=== PATIENT | female | born 1975 | race Caucasian/White ===

== ENCOUNTER 2018-09-30 15:46 | Inpatient (IN) | payer MEDICARE, MEDICAID ==
[~2018-09-30] VITALS: Ht 165.1 cm; Wt 104.0 kg
[~2018-09-30 15:46] MED LIST: ESOM20CA31 PO; LITH300C3 PO; LITH600 PO; METF-960 PO; ZIPR40CA2 PO
[2018-09-30 16:12] LABS: BASOPHILS % (AUTO) 0.9 % (0.0-2.0); EOSINOPHILS % (AUTO) 10.7 % (1.0-6.0); HEMATOCRIT 39.6 % (36-46); HEMOGLOBIN 13.3 g/dL (12.0-16.0); LYMPHOCYTES # (AUTO) 3.4 K/uL (1.0-4.8); LYMPHOCYTES % (AUTO) 24.3 % (22.0-44.0); MEAN CORPUSCULAR HEMOGLOBIN 29.7 pg (26.0-34.0); MEAN CORPUSCULAR HGB CONC 33.7 G/dL (31.0-37.0); MEAN CORPUSCULAR VOLUME 88 fL (80-100); MONOCYTES # (AUTO) 0.9 K/uL (0.1-1.0); MONOCYTES % (AUTO) 6.5 % (2.0-9.0); NEUTROPHILS % (AUTO) 57.6 % (40.0-70.0); PLATELET COUNT (AUTO) 538 K/uL (150-450); RED BLOOD CELL COUNT(AUTO) 4.48 MIL/uL (4.00-5.20)
[2018-09-30 16:21] LABS: ANION GAP 9 mmol/L (8-16); CALCIUM, TOTAL 9.5 mg/dL (8.8-10.5); CARBON DIOXIDE 28 mmol/L (22-29); CHLORIDE 98 mmol/L (98-107); CREATININE 0.92 mg/dL (0.60-1.30); GLOMERULAR FILTR. RATE CALC > 60 mL/min (>60); GLUCOSE,RANDOM 298 mg/dL (70-110); POTASSIUM 4.4 mmol/L (3.5-5.1); SODIUM SERUM 135 mmol/L (136-145); UREA NITROGEN, BLOOD 20 mg/dL (7-18)
[2018-09-30 16:27] LABS: ALANINE AMINOTRANSFERASE 91 U/L (12-78); ALBUMIN 3.9 g/dL (3.4-5.0); ALKALINE PHOSPHATASE 141 U/L (46-116); ASPARTATE AMINOTRANSFERASE 56 U/L (15-37); BILIRUBIN,TOTAL 1.5 mg/dL (0.1-1.0); TOTAL PROTEIN, SERUM 8.5 g/dL (6.4-8.2)
[2018-09-30 16:41] LABS: LITHIUM < 0.20 mmol/L (0.60-1.20)
[2018-09-30] MEDS ORDERED: LORazepam 1 MG TABLET PO ONE (17:15)
[2018-09-30] MEDS ORDERED: ZOLPIDEM TARTRATE 10 MG TABLET PO PRN (18:45)
[2018-09-30 18:51] LABS: AMPHET/METH SCREEN,URINE POSITIVE (NEGATIVE); BARBITURATE SCREEN, URINE NEGATIVE (NEGATIVE); BENZODIAZEPINES SCREEN,URINE NEGATIVE (NEGATIVE); CANNABINOID SCREEN,URINE POSITIVE (NEGATIVE); COCAINE SCREEN,URINE NEGATIVE (NEGATIVE); METHADONE SCREEN, URINE NEGATIVE (NEGATIVE); OPIATE SCREEN,URINE NEGATIVE (NEGATIVE)
[2018-09-30 18:52] LABS: PHENCYCLIDINE SCREEN,URINE NEGATIVE (NEGATIVE)
[2018-09-30 21:03] VITALS: BP 141/92
[2018-09-30] MEDS ORDERED: CloNIDine HCL 0.1 MG TABLET PO PRN (21:15)
[2018-09-30] MEDS ORDERED: ACETAMINOPHEN 325 MG TABLET PO PRN (21:15)
[2018-09-30] MEDS ORDERED: IBUPROFEN 400 MG TABLET PO PRN (21:15)
[2018-09-30] MEDS ORDERED: PETROLATUM,WHITE 28 GM JELLY TP PRN (21:15)
[2018-09-30] MEDS ORDERED: ONDANSETRON HCL 4 MG TABLET PO PRN (21:15)
[2018-09-30] MEDS ORDERED: NICOTINE 14 MG/24 HOUR PATCH TD PRN (21:15)
[2018-09-30] MEDS ORDERED: DOCUSATE SODIUM 100 MG CAPSULE PO PRN (21:15)
[2018-09-30] MEDS ORDERED: LOPERAMIDE HCL 2 MG CAPSULE PO PRN (21:15)
[2018-09-30] MEDS ORDERED: GuaiFENesin/D-METHORPHAN [SUGAR-FREE] 200-20MG/10 ML SYRUP UDCUP PO PRN (21:15)
[2018-09-30] MEDS ORDERED: ALBUTEROL SULFATE HFA 90 MCG/PUFF 8 GM INHALER IH PRN (21:15)
[2018-09-30] MEDS ORDERED: MAGNESIUM HYDROXIDE SUSPENSION 30 ML UDCUP PO PRN (21:15)
[2018-09-30] MEDS ORDERED: MAG HYDROX/AL HYDROX/SIMETH ES 30 ML SUSPENSION UDCUP PO PRN (21:15)
[2018-09-30] MEDS ORDERED: DEXTROSE 50%-WATER 25 GM/50 ML SYRINGE IVP PRN (21:45)
[2018-09-30] MEDS: LORazepam 2 MG TABLET PO PRN (22:52)
[2018-09-30] MEDS: HALOPERIDOL 5 MG TABLET PO PRN (22:52)
[2018-10-01] MEDS ORDERED: PNEUMOCOCCAL VACCINE POLYVALENT 0.5 ML VIAL [PPSV23] IM ONE (02:30)
[2018-10-01 06:19] LABS: BASOPHILS % (AUTO) 0.9 % (0.0-2.0); HEMOGLOBIN 12.4 g/dL (12.0-16.0); LYMPHOCYTES # (AUTO) 3.6 K/uL (1.0-4.8); LYMPHOCYTES % (AUTO) 32.4 % (22.0-44.0); MEAN CORPUSCULAR HEMOGLOBIN 29.7 pg (26.0-34.0); MEAN CORPUSCULAR HGB CONC 33.4 G/dL (31.0-37.0); MEAN CORPUSCULAR VOLUME 89 fL (80-100); MONOCYTES # (AUTO) 0.6 K/uL (0.1-1.0); MONOCYTES % (AUTO) 5.6 % (2.0-9.0); NEUTROPHILS # (AUTO) 4.5 K/uL (1.8-7.7); NEUTROPHILS % (AUTO) 41.1 % (40.0-70.0); PLATELET COUNT (AUTO) 457 K/uL (150-450); RED BLOOD CELL COUNT(AUTO) 4.16 MIL/uL (4.00-5.20); RED CELL DISTRIBUTION WIDTH 12.9 % (11.5-14.5)
[2018-10-01 06:55] LABS: GLUCOMETER DEV NAME(LOC) 3E.I; GLUCOSE,POINT OF CARE 302 MG/DL (70-110)
[2018-10-01 06:56] LABS: HEMOGLOBIN A1C 8.8 % (4.5-6.2)
[2018-10-01] MEDS: INSULIN LISPRO 100 UNITS/ML SQ PRN ×2 (07:22→17:53)
[2018-10-01 07:45] LABS: ALANINE AMINOTRANSFERASE 77 U/L (12-78); ALBUMIN 3.3 g/dL (3.4-5.0); ALKALINE PHOSPHATASE 127 U/L (46-116); ANION GAP 8 mmol/L (8-16); ASPARTATE AMINOTRANSFERASE 53 U/L (15-37); BILIRUBIN,TOTAL 1.2 mg/dL (0.1-1.0); CARBON DIOXIDE 27 mmol/L (22-29); CHLORIDE 101 mmol/L (98-107); CHOL/HDL RATIO 5.6 (3.9-5.7); CHOLESTEROL 169 mg/dL (131-200); CREATININE 0.77 mg/dL (0.60-1.30); GLOMERULAR FILTR. RATE CALC > 60 mL/min (>60); GLUCOSE,RANDOM 267 mg/dL (70-110); HDL CHOLESTEROL 30 mg/dL (40-60); LDL CHOL (CALC.) 95 mg/dL (0-130); POTASSIUM 4.3 mmol/L (3.5-5.1); SODIUM SERUM 136 mmol/L (136-145); THYROID STIMULATING HORMONE 2.93 uIU/mL (0.36-3.74); TOTAL PROTEIN, SERUM 6.7 g/dL (6.4-8.2); TRIGLYCERIDES 222 mg/dL (15-150); UREA NITROGEN, BLOOD 17 mg/dL (7-18)
[2018-10-01 08:50] VITALS: BP 134/70
[2018-10-01] MEDS: HALOPERIDOL 5 MG TABLET PO PRN (09:41)
[2018-10-01] MEDS: LORazepam 2 MG TABLET PO PRN ×2 (09:41→17:00)
[2018-10-01 16:45] VITALS: BP 126/90
[2018-10-01] MEDS: LITHIUM CARBONATE 300 MG TABLET PO SCH (17:01)
[2018-10-01 17:04] LABS: GLUCOMETER DEV NAME(LOC) 3E.I; GLUCOSE,POINT OF CARE 233 MG/DL (70-110)
[2018-10-01] MEDS ORDERED: LURASIDONE HCL 40 MG TABLET PO SCH (17:30)
[2018-10-01] MEDS ORDERED: MetFORMIN HCL 500 MG TABLET PO SCH (17:30)
[2018-10-02 06:15] LABS: GLUCOMETER DEV NAME(LOC) 3E.I; GLUCOSE,POINT OF CARE 263 MG/DL (70-110)
[2018-10-02] MEDS: INSULIN LISPRO 100 UNITS/ML SQ PRN (07:10)
[2018-10-02 08:00] VITALS: BP 127/83
[2018-10-02] MEDS ORDERED: PredniSONE 20 MG TABLET ONE (08:26)
[2018-10-02] MEDS: LITHIUM CARBONATE 300 MG TABLET PO SCH (08:28)
[2018-10-02] MEDS ORDERED: PredniSONE 20 MG TABLET PO ONE (08:30)
[2018-10-02] MEDS: LORazepam 2 MG TABLET PO PRN (08:34)
[2018-10-02] MEDS: HALOPERIDOL 5 MG TABLET PO PRN (08:34)
[2018-10-02] MEDS ORDERED: OMEGA-3/DHA/EPA/FISH OIL 1,000 MG CAPSULE PO SCH (09:00)
[2018-10-02 12:11] VITALS: BP 135/86
== END 2018-10-02 13:26 | disposition short-term general hospital (02) | DRG 885 ==
LOC: EMS 15:47 → 3EI 18:48
PROVIDERS: ADMIT Psychiatry & Neurology Psychiatry; ATTEND Psychiatry & Neurology Psychiatry
DX: F25.0 Schizoaffective disorder, bipolar type (principal); R45.851 Suicidal ideations; M19.90 Unspecified osteoarthritis, unspecified site; E11.9 Type 2 diabetes mellitus without complications; M48.061 Spinal stenosis, lumbar region without neurogenic claudication; R74.0 Nonspecific elevation of levels of transaminase and lactic acid dehydrogenase [LDH]; E66.01 Morbid (severe) obesity due to excess calories; E78.5 Hyperlipidemia, unspecified; F12.90 Cannabis use, unspecified, uncomplicated; F41.9 Anxiety disorder, unspecified; K21.9 Gastro-esophageal reflux disease without esophagitis; Z59.0 Homelessness; Z68.38 Body mass index [BMI] 38.0-38.9, adult; Z28.21 Immunization not carried out because of patient refusal
CPT/HCPCS: 83036; 84443; G0480

== ENCOUNTER 2018-10-02 13:50 | Inpatient (IN) | payer MEDICARE, MEDICAID ==
[2018-10-02 15:54] VITALS: BP 116/60
[2018-10-02] MEDS ORDERED: DiphenhydrAMINE HCL 50 MG/ML VIAL IVP SCH (16:00)
[2018-10-02] MEDS ORDERED: ACETAMINOPHEN 325 MG TABLET PO PRN ×2 (16:45→23:15)
[2018-10-02] MEDS: MethylPREDNISolone SOD SUCC 40 MG/ML VIAL IVP SCH (17:04)
[2018-10-02 17:39] LABS: GLUCOMETER DEV NAME(LOC) 4E.; GLUCOSE,POINT OF CARE 360 MG/DL (70-110)
[2018-10-02 20:07] VITALS: BP 123/76
[2018-10-02] MEDS ORDERED: DEXTROSE 50%-WATER 25 GM/50 ML SYRINGE IVP PRN (22:30)
[2018-10-02] MEDS: HYDROCODONE/ACETAMINOPHEN 5-325 MG TABLET PO PRN (22:37)
[2018-10-02] MEDS: DiphenhydrAMINE HCL 50 MG/ML VIAL IVP PRN (22:38)
[2018-10-02] MEDS: INSULIN LISPRO 100 UNITS/ML SQ PRN (22:45)
[2018-10-02] MEDS: FAMOTIDINE 20 MG TABLET PO SCH (22:54)
[2018-10-02] MEDS ORDERED: IPRATROPIUM BROMIDE 0.5 MG/2.5 ML NEB SOLUTION NEB PRN (23:15)
[2018-10-02] MEDS ORDERED: BISACODYL 10 MG RECTAL RECTAL SUPPOSITORY PR PRN (23:15)
[2018-10-02] MEDS ORDERED: ONDANSETRON HCL 4 MG/2 ML VIAL IVP PRN (23:15)
[2018-10-02] MEDS ORDERED: ALBUTEROL SULFATE 2.5 MG/0.5 ML NEB SOLUTION NEB PRN (23:15)
[2018-10-02] MEDS ORDERED: MAGNESIUM HYDROXIDE SUSPENSION 30 ML UDCUP PO PRN (23:15)
[2018-10-02] MEDS ORDERED: MORPHINE SULFATE 2 MG/ML SYRINGE IVP PRN (23:15)
[2018-10-02] MEDS ORDERED: ZOLPIDEM TARTRATE 5 MG TABLET PO PRN (23:15)
[2018-10-02 23:29] LABS: GLUCOMETER DEV NAME(LOC) 5N.2; GLUCOSE,POINT OF CARE 423 MG/DL (70-110)
[2018-10-02 23:43] VITALS: BP 128/76
[2018-10-03 00:35] LABS: BASOPHILS % (AUTO) 0.2 % (0.0-2.0); EOSINOPHILS % (AUTO) 0.2 % (1.0-6.0); HEMATOCRIT 39.1 % (36-46); HEMOGLOBIN 12.7 g/dL (12.0-16.0); LYMPHOCYTES # (AUTO) 1.3 K/uL (1.0-4.8); LYMPHOCYTES % (AUTO) 6.6 % (22.0-44.0); MEAN CORPUSCULAR HEMOGLOBIN 29.5 pg (26.0-34.0); MEAN CORPUSCULAR HGB CONC 32.5 G/dL (31.0-37.0); MEAN CORPUSCULAR VOLUME 91 fL (80-100); MONOCYTES # (AUTO) 0.3 K/uL (0.1-1.0); MONOCYTES % (AUTO) 1.7 % (2.0-9.0); NEUTROPHILS # (AUTO) 17.4 K/uL (1.8-7.7); PLATELET COUNT (AUTO) 461 K/uL (150-450); RED BLOOD CELL COUNT(AUTO) 4.31 MIL/uL (4.00-5.20); RED CELL DISTRIBUTION WIDTH 13.1 % (11.5-14.5)
[2018-10-03 00:36] LABS: NEUTROPHILS % (AUTO) 91.3 % (40.0-70.0)
[2018-10-03 00:50] LABS: ALBUMIN 3.4 g/dL (3.4-5.0); BILIRUBIN,TOTAL 0.5 mg/dL (0.1-1.0); C-REACTIVE PROTEIN QUANT 0.88 mg/dL (0.00-0.30); CALCIUM, TOTAL 9.7 mg/dL (8.8-10.5); CREATININE 1.02 mg/dL (0.60-1.30); POTASSIUM 4.6 mmol/L (3.5-5.1)
[2018-10-03] MEDS: MethylPREDNISolone SOD SUCC 40 MG/ML VIAL IVP SCH ×2 (01:15→09:02)
[2018-10-03] MEDS: HEPARIN SODIUM,PORCINE 5,000 UNITS/ML VIAL SQ SCH ×4 (01:16→23:18)
[2018-10-03 01:40] LABS: ERYTHROCYTE SEDIMENTATION RATE 47 MM/HR (0-20)
[2018-10-03 04:30] VITALS: BP 119/76
[2018-10-03] MEDS: INSULIN LISPRO 100 UNITS/ML SQ PRN ×4 (05:03→21:27)
[2018-10-03] MEDS: DiphenhydrAMINE HCL 50 MG/ML VIAL IVP PRN ×3 (05:12→21:00)
[2018-10-03] MEDS: HYDROCODONE/ACETAMINOPHEN 5-325 MG TABLET PO PRN ×4 (05:15→19:57)
[2018-10-03 06:44] LABS: GLUCOMETER DEV NAME(LOC) 5N.2; GLUCOSE,POINT OF CARE 388 MG/DL (70-110)
[2018-10-03 06:44] LABS: GLUCOMETER DEV NAME(LOC) 5N.2; GLUCOSE,POINT OF CARE 452 MG/DL (70-110)
[2018-10-03 08:36] VITALS: BP 146/76
[2018-10-03] MEDS: PANTOPRAZOLE SODIUM 40 MG DR TABLET PO SCH (09:00)
[2018-10-03] MEDS: FAMOTIDINE 20 MG TABLET PO SCH ×2 (09:02→19:56)
[2018-10-03] MEDS: DOCUSATE SODIUM 100 MG CAPSULE PO SCH ×2 (09:07→19:56)
[2018-10-03] MEDS: INSULIN GLARGINE,HUM.REC.ANLOG 100 UNITS/ML SQ SCH ×2 (09:45→21:29)
[2018-10-03 11:50] VITALS: BP 146/82
[2018-10-03 15:32] VITALS: BP 128/62
[2018-10-03 15:54] LABS: GLUCOMETER DEV NAME(LOC) 5N.2; GLUCOSE,POINT OF CARE 392 MG/DL (70-110)
[2018-10-03 15:54] LABS: GLUCOMETER DEV NAME(LOC) 5N.2; GLUCOSE,POINT OF CARE 329 MG/DL (70-110)
[2018-10-03 17:49] LABS: GLUCOMETER DEV NAME(LOC) 5N.2; GLUCOSE,POINT OF CARE 333 MG/DL (70-110)
[2018-10-03 20:06] VITALS: BP 124/81
[2018-10-03 23:39] LABS: GLUCOMETER DEV NAME(LOC) 5N.2; GLUCOSE,POINT OF CARE 333 MG/DL (70-110)
[2018-10-04] VITALS (7 sets, daily range): BP systolic 108–146; BP diastolic 60–94
[2018-10-04] MEDS: DiphenhydrAMINE HCL 50 MG/ML VIAL IVP PRN ×6 (01:02→20:08)
[2018-10-04] MEDS: HYDROCODONE/ACETAMINOPHEN 5-325 MG TABLET PO PRN ×5 (01:07→20:09)
[2018-10-04] MEDS: INSULIN LISPRO 100 UNITS/ML SQ PRN ×4 (06:11→20:52)
[2018-10-04 08:19] LABS: GLUCOMETER DEV NAME(LOC) 5N.2; GLUCOSE,POINT OF CARE 400 MG/DL (70-110)
[2018-10-04] MEDS: HEPARIN SODIUM,PORCINE 5,000 UNITS/ML VIAL SQ SCH ×3 (08:27→23:38)
[2018-10-04] MEDS: FAMOTIDINE 20 MG TABLET PO SCH (08:28)
[2018-10-04] MEDS: DOCUSATE SODIUM 100 MG CAPSULE PO SCH ×2 (08:28→20:09)
[2018-10-04] MEDS: PANTOPRAZOLE SODIUM 40 MG DR TABLET PO SCH (08:28)
[2018-10-04] MEDS: INSULIN GLARGINE,HUM.REC.ANLOG 100 UNITS/ML SQ SCH ×2 (08:29→20:53)
[2018-10-04 12:09] LABS: GLUCOMETER DEV NAME(LOC) 5N.2; GLUCOSE,POINT OF CARE 319 MG/DL (70-110)
[2018-10-04 12:13] LABS: ANION GAP 13 mmol/L (8-16); CALCIUM, TOTAL 9.2 mg/dL (8.8-10.5); CARBON DIOXIDE 24 mmol/L (22-29); CHLORIDE 98 mmol/L (98-107); GLOMERULAR FILTR. RATE CALC > 60 mL/min (>60); GLUCOSE,RANDOM 271 mg/dL (70-110); POTASSIUM 3.9 mmol/L (3.5-5.1); SODIUM SERUM 135 mmol/L (136-145); UREA NITROGEN, BLOOD 16 mg/dL (7-18)
[2018-10-04] MEDS: LORazepam 2 MG TABLET PO PRN ×2 (17:11→23:42)
[2018-10-04 17:50] LABS: GLUCOMETER DEV NAME(LOC) 5N.2; GLUCOSE,POINT OF CARE 252 MG/DL (70-110)
[2018-10-04] MEDS: FAMOTIDINE 10 MG/ML 2 ML VIAL IVP SCH (20:08)
[2018-10-04 21:34] LABS: GLUCOMETER DEV NAME(LOC) 5N.2; GLUCOSE,POINT OF CARE 249 MG/DL (70-110)
[2018-10-05 05:09] VITALS: BP 118/71
[2018-10-05] MEDS: DiphenhydrAMINE HCL 50 MG/ML VIAL IVP PRN ×4 (05:15→20:32)
[2018-10-05] MEDS: HYDROCODONE/ACETAMINOPHEN 5-325 MG TABLET PO PRN ×4 (05:16→20:31)
[2018-10-05 06:07] LABS: HEMATOCRIT 38.5 % (36-46); HEMOGLOBIN 13.1 g/dL (12.0-16.0); LYMPHOCYTES # (AUTO) 5.8 K/uL (1.0-4.8); LYMPHOCYTES % (AUTO) 42.3 % (22.0-44.0); MEAN CORPUSCULAR HEMOGLOBIN 30.7 pg (26.0-34.0); MEAN CORPUSCULAR VOLUME 90 fL (80-100); MONOCYTES # (AUTO) 0.8 K/uL (0.1-1.0); MONOCYTES % (AUTO) 5.7 % (2.0-9.0); NEUTROPHILS # (AUTO) 4.9 K/uL (1.8-7.7); NEUTROPHILS % (AUTO) 35.7 % (40.0-70.0); PLATELET COUNT (AUTO) 377 K/uL (150-450); RED BLOOD CELL COUNT(AUTO) 4.26 MIL/uL (4.00-5.20); RED CELL DISTRIBUTION WIDTH 13.5 % (11.5-14.5)
[2018-10-05 06:15] LABS: EOSINOPHILS % (AUTO) 15.3 % (1.0-6.0)
[2018-10-05] MEDS: INSULIN LISPRO 100 UNITS/ML SQ PRN ×4 (06:24→20:44)
[2018-10-05 06:26] LABS: ALANINE AMINOTRANSFERASE 56 U/L (12-78); ALBUMIN 2.9 g/dL (3.4-5.0); ALKALINE PHOSPHATASE 124 U/L (46-116); ANION GAP 8 mmol/L (8-16); ASPARTATE AMINOTRANSFERASE 23 U/L (15-37); BILIRUBIN,TOTAL 0.2 mg/dL (0.1-1.0); CALCIUM, TOTAL 8.8 mg/dL (8.8-10.5); CARBON DIOXIDE 27 mmol/L (22-29); CHLORIDE 98 mmol/L (98-107); CREATININE 0.83 mg/dL (0.60-1.30); GLOMERULAR FILTR. RATE CALC > 60 mL/min (>60); GLUCOSE,RANDOM 228 mg/dL (70-110); POTASSIUM 3.8 mmol/L (3.5-5.1); SODIUM SERUM 133 mmol/L (136-145); TOTAL PROTEIN, SERUM 6.8 g/dL (6.4-8.2); UREA NITROGEN, BLOOD 23 mg/dL (7-18)
[2018-10-05 07:10] LABS: GLUCOMETER DEV NAME(LOC) 5N.2; GLUCOSE,POINT OF CARE 219 MG/DL (70-110)
[2018-10-05 07:35] VITALS: BP 124/73
[2018-10-05] MEDS: FAMOTIDINE 10 MG/ML 2 ML VIAL IVP SCH ×2 (08:05→20:45)
[2018-10-05] MEDS: DOCUSATE SODIUM 100 MG CAPSULE PO SCH ×2 (08:05→20:44)
[2018-10-05] MEDS: LORazepam 2 MG TABLET PO PRN ×3 (08:05→23:39)
[2018-10-05] MEDS: HEPARIN SODIUM,PORCINE 5,000 UNITS/ML VIAL SQ SCH ×3 (08:05→23:39)
[2018-10-05] MEDS: INSULIN GLARGINE,HUM.REC.ANLOG 100 UNITS/ML SQ SCH ×2 (08:06→20:43)
[2018-10-05 11:49] VITALS: BP 118/70
[2018-10-05 12:29] LABS: GLUCOMETER DEV NAME(LOC) 5N.2; GLUCOSE,POINT OF CARE 221 MG/DL (70-110)
[2018-10-05] MEDS ORDERED: PNEUMOCOCCAL VACCINE POLYVALENT 0.5 ML VIAL [PPSV23] IM ONE (15:45)
[2018-10-05 15:52] VITALS: BP 126/74
[2018-10-05 19:47] VITALS: BP 112/70
[2018-10-06 00:19] VITALS: BP 120/85
[2018-10-06] MEDS: DiphenhydrAMINE HCL 50 MG/ML VIAL IVP PRN ×4 (03:57→20:51)
[2018-10-06] MEDS: HYDROCODONE/ACETAMINOPHEN 5-325 MG TABLET PO PRN ×4 (03:57→20:51)
[2018-10-06 03:59] VITALS: BP 130/82
[2018-10-06 06:43] LABS: BASOPHILS % (AUTO) 0.4 % (0.0-2.0); HEMATOCRIT 39.3 % (36-46); HEMOGLOBIN 13.2 g/dL (12.0-16.0); LYMPHOCYTES # (AUTO) 4.4 K/uL (1.0-4.8); LYMPHOCYTES % (AUTO) 41.6 % (22.0-44.0); MEAN CORPUSCULAR HEMOGLOBIN 30.2 pg (26.0-34.0); MEAN CORPUSCULAR HGB CONC 33.7 G/dL (31.0-37.0); MEAN CORPUSCULAR VOLUME 89 fL (80-100); MONOCYTES # (AUTO) 0.6 K/uL (0.1-1.0); NEUTROPHILS # (AUTO) 3.5 K/uL (1.8-7.7); NEUTROPHILS % (AUTO) 33.4 % (40.0-70.0); PLATELET COUNT (AUTO) 347 K/uL (150-450); RED BLOOD CELL COUNT(AUTO) 4.39 MIL/uL (4.00-5.20); RED CELL DISTRIBUTION WIDTH 13.6 % (11.5-14.5)
[2018-10-06] MEDS: INSULIN LISPRO 100 UNITS/ML SQ PRN ×4 (06:44→21:42)
[2018-10-06] MEDS: LORazepam 2 MG TABLET PO PRN ×3 (06:46→20:51)
[2018-10-06 06:59] LABS: ANION GAP 6 mmol/L (8-16); CALCIUM, TOTAL 8.8 mg/dL (8.8-10.5); CARBON DIOXIDE 28 mmol/L (22-29); CHLORIDE 99 mmol/L (98-107); CREATININE 0.86 mg/dL (0.60-1.30); GLOMERULAR FILTR. RATE CALC > 60 mL/min (>60); GLUCOSE,RANDOM 204 mg/dL (70-110); POTASSIUM 4.2 mmol/L (3.5-5.1); SODIUM SERUM 133 mmol/L (136-145); UREA NITROGEN, BLOOD 15 mg/dL (7-18)
[2018-10-06 07:01] LABS: EOSINOPHILS % (AUTO) 18.6 % (1.0-6.0)
[2018-10-06 07:04] LABS: GLUCOMETER DEV NAME(LOC) 5N.2; GLUCOSE,POINT OF CARE 282 MG/DL (70-110)
[2018-10-06 07:05] LABS: GLUCOMETER DEV NAME(LOC) 5N.2; GLUCOSE,POINT OF CARE 195 MG/DL (70-110)
[2018-10-06 07:05] LABS: GLUCOMETER DEV NAME(LOC) 5N.2; GLUCOSE,POINT OF CARE 246 MG/DL (70-110)
[2018-10-06 07:20] VITALS: BP 107/57
[2018-10-06] MEDS: HEPARIN SODIUM,PORCINE 5,000 UNITS/ML VIAL SQ SCH ×2 (08:24→16:33)
[2018-10-06] MEDS: DOCUSATE SODIUM 100 MG CAPSULE PO SCH ×2 (08:24→20:50)
[2018-10-06] MEDS: FAMOTIDINE 10 MG/ML 2 ML VIAL IVP SCH ×2 (08:25→20:51)
[2018-10-06] MEDS: INSULIN GLARGINE,HUM.REC.ANLOG 100 UNITS/ML SQ SCH ×2 (08:35→21:43)
[2018-10-06 11:17] VITALS: BP 135/73
[2018-10-06 19:47] VITALS: BP 122/78
[2018-10-06] MEDS: HYDROCORTISONE 0.5% 30 GM OINTMENT TP PRN (21:57)
[2018-10-06 23:00] LABS: GLUCOMETER DEV NAME(LOC) 5N.2; GLUCOSE,POINT OF CARE 251 MG/DL (70-110)
[2018-10-06 23:00] LABS: GLUCOMETER DEV NAME(LOC) 5N.2; GLUCOSE,POINT OF CARE 193 MG/DL (70-110)
[2018-10-06 23:00] LABS: GLUCOMETER DEV NAME(LOC) 5S.1; GLUCOSE,POINT OF CARE 254 MG/DL (70-110)
[2018-10-07 00:03] VITALS: BP 111/66
[2018-10-07] MEDS: DiphenhydrAMINE HCL 50 MG/ML VIAL IVP PRN ×5 (00:59→22:58)
[2018-10-07] MEDS: HEPARIN SODIUM,PORCINE 5,000 UNITS/ML VIAL SQ SCH ×4 (00:59→22:58)
[2018-10-07] MEDS: HYDROCODONE/ACETAMINOPHEN 5-325 MG TABLET PO PRN ×7 (01:03→22:58)
[2018-10-07 04:10] VITALS: BP 113/73
[2018-10-07] MEDS: INSULIN LISPRO 100 UNITS/ML SQ PRN ×4 (05:08→21:12)
[2018-10-07 06:14] LABS: GLUCOMETER DEV NAME(LOC) 5S.1; GLUCOSE,POINT OF CARE 249 MG/DL (70-110)
[2018-10-07 06:49] LABS: BASOPHILS % (AUTO) 0.5 % (0.0-2.0); HEMATOCRIT 39.9 % (36-46); HEMOGLOBIN 13.1 g/dL (12.0-16.0); LYMPHOCYTES # (AUTO) 3.9 K/uL (1.0-4.8); LYMPHOCYTES % (AUTO) 36.9 % (22.0-44.0); MEAN CORPUSCULAR HEMOGLOBIN 29.9 pg (26.0-34.0); MEAN CORPUSCULAR HGB CONC 32.9 G/dL (31.0-37.0); MEAN CORPUSCULAR VOLUME 91 fL (80-100); MONOCYTES # (AUTO) 0.8 K/uL (0.1-1.0); MONOCYTES % (AUTO) 7.2 % (2.0-9.0); NEUTROPHILS # (AUTO) 4.1 K/uL (1.8-7.7); NEUTROPHILS % (AUTO) 38.8 % (40.0-70.0); PLATELET COUNT (AUTO) 320 K/uL (150-450); RED BLOOD CELL COUNT(AUTO) 4.39 MIL/uL (4.00-5.20); RED CELL DISTRIBUTION WIDTH 13.5 % (11.5-14.5)
[2018-10-07 06:55] LABS: EOSINOPHILS % (AUTO) 16.6 % (1.0-6.0)
[2018-10-07 07:10] VITALS: BP 132/93
[2018-10-07 07:10] LABS: ANION GAP 6 mmol/L (8-16); CALCIUM, TOTAL 9.1 mg/dL (8.8-10.5); CARBON DIOXIDE 30 mmol/L (22-29); CHLORIDE 98 mmol/L (98-107); CREATININE 0.92 mg/dL (0.60-1.30); GLOMERULAR FILTR. RATE CALC > 60 mL/min (>60); GLUCOSE,RANDOM 253 mg/dL (70-110); POTASSIUM 4.5 mmol/L (3.5-5.1); SODIUM SERUM 134 mmol/L (136-145); UREA NITROGEN, BLOOD 12 mg/dL (7-18)
[2018-10-07] MEDS: LORazepam 2 MG TABLET PO PRN ×4 (07:59→21:05)
[2018-10-07] MEDS: FAMOTIDINE 10 MG/ML 2 ML VIAL IVP SCH ×2 (08:00→21:05)
[2018-10-07] MEDS: DOCUSATE SODIUM 100 MG CAPSULE PO SCH ×2 (08:00→21:05)
[2018-10-07] MEDS: INSULIN GLARGINE,HUM.REC.ANLOG 100 UNITS/ML SQ SCH ×2 (08:42→21:16)
[2018-10-07 11:00] VITALS: BP 114/69
[2018-10-07 12:50] LABS: GLUCOMETER DEV NAME(LOC) 5S.1; GLUCOSE,POINT OF CARE 223 MG/DL (70-110)
[2018-10-07 15:00] VITALS: BP 139/65
[2018-10-07 19:10] LABS: GLUCOMETER DEV NAME(LOC) 5S.1; GLUCOSE,POINT OF CARE 280 MG/DL (70-110)
[2018-10-07 20:30] VITALS: BP 124/77
[2018-10-07] MEDS: HYDROCORTISONE 0.5% 30 GM OINTMENT TP PRN (21:05)
[2018-10-07 22:24] LABS: GLUCOMETER DEV NAME(LOC) 5S.1; GLUCOSE,POINT OF CARE 256 MG/DL (70-110)
[2018-10-08] MEDS: HYDROCODONE/ACETAMINOPHEN 5-325 MG TABLET PO PRN ×5 (02:57→22:38)
[2018-10-08] MEDS: DiphenhydrAMINE HCL 50 MG/ML VIAL IVP PRN ×4 (03:00→17:06)
[2018-10-08 03:30] VITALS: BP 124/71
[2018-10-08] MEDS: LORazepam 2 MG TABLET PO PRN ×4 (03:55→20:19)
[2018-10-08] MEDS: INSULIN LISPRO 100 UNITS/ML SQ PRN ×4 (06:26→22:38)
[2018-10-08 06:46] LABS: ANION GAP 10 mmol/L (8-16); CALCIUM, TOTAL 8.5 mg/dL (8.8-10.5); CARBON DIOXIDE 25 mmol/L (22-29); CHLORIDE 98 mmol/L (98-107); CREATININE 0.74 mg/dL (0.60-1.30); GLOMERULAR FILTR. RATE CALC > 60 mL/min (>60); GLUCOSE,RANDOM 223 mg/dL (70-110); POTASSIUM 4.2 mmol/L (3.5-5.1); SODIUM SERUM 133 mmol/L (136-145); UREA NITROGEN, BLOOD 12 mg/dL (7-18)
[2018-10-08 07:25] LABS: GLUCOMETER DEV NAME(LOC) 5S.1; GLUCOSE,POINT OF CARE 226 MG/DL (70-110)
[2018-10-08] MEDS: DOCUSATE SODIUM 100 MG CAPSULE PO SCH ×2 (07:59→20:19)
[2018-10-08] MEDS: HEPARIN SODIUM,PORCINE 5,000 UNITS/ML VIAL SQ SCH ×3 (07:59→23:42)
[2018-10-08] MEDS: FAMOTIDINE 10 MG/ML 2 ML VIAL IVP SCH (07:59)
[2018-10-08 08:00] VITALS: BP 111/51
[2018-10-08] MEDS: INSULIN GLARGINE,HUM.REC.ANLOG 100 UNITS/ML SQ SCH ×2 (08:12→22:37)
[2018-10-08 11:05] VITALS: BP 119/64
[2018-10-08 15:50] VITALS: BP 121/79
[2018-10-08 19:00] VITALS: BP 110/67
[2018-10-08] MEDS: DiphenhydrAMINE HCL 25 MG CAPSULE PO PRN (22:38)
[2018-10-08] MEDS: FAMOTIDINE 20 MG TABLET PO SCH (22:38)
[2018-10-08 22:40] LABS: GLUCOMETER DEV NAME(LOC) 5S.1; GLUCOSE,POINT OF CARE 213 MG/DL (70-110)
[2018-10-08 22:40] LABS: GLUCOMETER DEV NAME(LOC) 5S.1; GLUCOSE,POINT OF CARE 218 MG/DL (70-110)
[2018-10-08 22:40] LABS: GLUCOMETER DEV NAME(LOC) 5S.1; GLUCOSE,POINT OF CARE 307 MG/DL (70-110)
[2018-10-08 23:19] LABS: GLUCOMETER DEV NAME(LOC) 4E.2; GLUCOSE,POINT OF CARE 320 MG/DL (70-110)
[2018-10-09 00:02] VITALS: BP 119/87
[2018-10-09 04:00] VITALS: BP 142/71
[2018-10-09] MEDS: HYDROCODONE/ACETAMINOPHEN 5-325 MG TABLET PO PRN ×5 (04:30→21:04)
[2018-10-09] MEDS: DiphenhydrAMINE HCL 25 MG CAPSULE PO PRN ×4 (04:30→16:35)
[2018-10-09] MEDS: INSULIN LISPRO 100 UNITS/ML SQ PRN ×4 (04:39→21:03)
[2018-10-09 07:05] LABS: GLUCOMETER DEV NAME(LOC) 5S.1; GLUCOSE,POINT OF CARE 351 MG/DL (70-110)
[2018-10-09] MEDS: DOCUSATE SODIUM 100 MG CAPSULE PO SCH ×2 (08:23→20:04)
[2018-10-09] MEDS: HEPARIN SODIUM,PORCINE 5,000 UNITS/ML VIAL SQ SCH ×2 (08:23→16:35)
[2018-10-09] MEDS: FAMOTIDINE 20 MG TABLET PO SCH ×2 (08:23→20:04)
[2018-10-09] MEDS: INSULIN GLARGINE,HUM.REC.ANLOG 100 UNITS/ML SQ SCH ×2 (08:31→21:02)
[2018-10-09 08:46] VITALS: BP 127/73
[2018-10-09] MEDS: LORazepam 2 MG TABLET PO PRN ×3 (09:58→20:04)
[2018-10-09 12:31] VITALS: BP 139/115
[2018-10-09] MEDS: FLUoxetine HCL 20 MG CAPSULE PO SCH (14:58)
[2018-10-09 15:44] VITALS: BP 134/86
[2018-10-09 17:29] LABS: GLUCOMETER DEV NAME(LOC) 5S.1; GLUCOSE,POINT OF CARE 273 MG/DL (70-110)
[2018-10-09 20:29] LABS: GLUCOMETER DEV NAME(LOC) 4E.2; GLUCOSE,POINT OF CARE 231 MG/DL (70-110)
[2018-10-09 20:37] VITALS: BP 117/65
[2018-10-09] MEDS: HYDROCORTISONE 0.5% 30 GM OINTMENT TP PRN (21:19)
[2018-10-09 23:49] LABS: GLUCOMETER DEV NAME(LOC) 5S.1; GLUCOSE,POINT OF CARE 243 MG/DL (70-110)
[2018-10-10 00:35] VITALS: BP 116/62
[2018-10-10] MEDS: LORazepam 2 MG TABLET PO PRN ×3 (00:45→09:35)
[2018-10-10] MEDS: HYDROCODONE/ACETAMINOPHEN 5-325 MG TABLET PO PRN ×2 (01:57→06:48)
[2018-10-10 05:22] VITALS: BP 108/68
[2018-10-10] MEDS: INSULIN LISPRO 100 UNITS/ML SQ PRN (05:41)
[2018-10-10 07:11] VITALS: BP 113/69
[2018-10-10] MEDS: INSULIN GLARGINE,HUM.REC.ANLOG 100 UNITS/ML SQ SCH (08:40)
[2018-10-10] MEDS: FLUoxetine HCL 20 MG CAPSULE PO SCH (08:41)
[2018-10-10] MEDS: FAMOTIDINE 20 MG TABLET PO SCH (08:41)
[2018-10-10] MEDS: DiphenhydrAMINE HCL 25 MG CAPSULE PO PRN (08:41)
[2018-10-10] MEDS: HEPARIN SODIUM,PORCINE 5,000 UNITS/ML VIAL SQ SCH ×2 (08:41)
[2018-10-10] MEDS: DOCUSATE SODIUM 100 MG CAPSULE PO SCH (08:41)
[2018-10-10 09:34] LABS: GLUCOMETER DEV NAME(LOC) 5S.1; GLUCOSE,POINT OF CARE 238 MG/DL (70-110)
[2018-10-10 09:34] LABS: GLUCOMETER DEV NAME(LOC) 5S.1; GLUCOSE,POINT OF CARE 274 MG/DL (70-110)
[2018-10-10] MEDS ORDERED: FLUO-191 PO (10:40)
[2018-10-10] MEDS ORDERED: FAMO20 PO (10:40)
[2018-10-10] MEDS ORDERED: INSLAN SQ (10:42)
== END 2018-10-10 11:13 | disposition home or self-care (01) | DRG 596 ==
LOC: 4E 13:50
PROVIDERS: ADMIT Internal Medicine; ATTEND Internal Medicine
DX: L51.1 Stevens-Johnson syndrome (principal); R45.851 Suicidal ideations; K21.9 Gastro-esophageal reflux disease without esophagitis; M19.90 Unspecified osteoarthritis, unspecified site; E78.5 Hyperlipidemia, unspecified; R74.0 Nonspecific elevation of levels of transaminase and lactic acid dehydrogenase [LDH]; T78.40XA Allergy, unspecified, initial encounter; E66.01 Morbid (severe) obesity due to excess calories; F17.200 Nicotine dependence, unspecified, uncomplicated; F32.9 Major depressive disorder, single episode, unspecified; F41.9 Anxiety disorder, unspecified; M79.89 Other specified soft tissue disorders; K74.60 Unspecified cirrhosis of liver; M48.00 Spinal stenosis, site unspecified; R21 Rash and other nonspecific skin eruption; F25.0 Schizoaffective disorder, bipolar type; F15.10 Other stimulant abuse, uncomplicated; F12.10 Cannabis abuse, uncomplicated; E11.65 Type 2 diabetes mellitus with hyperglycemia; F43.10 Post-traumatic stress disorder, unspecified; X58.XXXA Exposure to other specified factors, initial encounter; Z87.892 Personal history of anaphylaxis; Z59.0 Homelessness; Z79.899 Other long term (current) drug therapy; Z68.38 Body mass index [BMI] 38.0-38.9, adult
CPT/HCPCS: 84145; 85651; 86140; 87040; G0378; J1200; J1644; J1815; J2920; J3490